=== PATIENT | female | born 1975 | race Hispanic/Latino ===

== ENCOUNTER 2018-11-16 16:59 | Inpatient (IN) | payer MEDICAID, SELFPAY ==
--- NOTE | 2018-11-17 09:10 | PDOC.FPROB ---
FMR OB H&P: HPI - History of Present Illness Chief Complaint: White class B diabetic Indentification: 43yo @32.1wks by 29wk US History of Present Illness: 43yo @32.1wks by 29wk US white class B diabetic with history of preeclampsia and hypothyroidism presents for initiation of insulin therapy 2/2 uncontrolled DM affecting . Pt reports blood sugars ranging from 140- 180 at home and is currently taking metformin 1000mg bid. She is unsure of her last Hgb A1c. She reports pos movement denies LOF, CTX, vaginal bleeding and vaginal discharge. 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: April colposcopy and leep for abnormal pap - Surgical History Sx History: Leep april 2018 - Social History Social History: Deneis tobacco etoh and drugs FMR OB H&P: Medications - Current Home Medications: Medication Instructions Recorded Confirmed Type Levothyroxine Sodium [Synthroid] 100 mcg PO DAILY 11/17/18 11/17/18 History ,Calc.40/Iron/Folate 1 1 tablet PO DAILY 11/17/18 11/17/18 History [PNV-Select Tablet] metFORMIN HCl [Metformin HCl] 1,000 mg PO BID 11/17/18 11/17/18 History Allergies/Adverse Reactions: Allergies Allergy/AdvReac Type Severity Reaction Status Date / Time No Known Drug Allergies Allergy Unverified 11/17/18 10:52 FMR OB H&P: ROS - Review of Systems General: denies: fever/chills Eyes: denies: vision changes, double vision, scotomas, floaters ENT: denies: nasal congestion, rhinorrhea Cardiovascular: denies: chest pain, palpitation Respiratory: denies: cough, shortness of breath Gastrointestinal: denies: abdominal pain, nausea, vomiting Genitourinary (Female): denies: dysuria, vaginal discharge, vaginal bleeding, contractions Neurologic: denies: weakness, headache Integumentary: denies: itching, rash FMR OB H&P: Vital Signs - Maternal Vital signs: Selected Entries 11/17/18 09:30 Temperature 98.1 F Pulse Rate 88 Blood Pressure 103/59 L [Sitting] Respiratory 18 Rate O2 Sat by Pulse 96 Oximetry Oxygen Delivery Room Air Method FMR OB H&P: Physical Exam - Physical Exam General: NAD, awake, alert and oriented HEENT: normocephalic and atraumatic, MMM, conjunctiva clear, grossly normal hearing, oropharynx clear Neck: supple, trachea midline Heart: RRR, no murmurs/rubs/gallops General: CTAB, no respiratory distress Abdomen: soft, gravid, non-tender, bowel sound present Musculoskeletal: normal gait and station, pulses present, no misalignment/ asymmetry, no atrophy Neurological: no focal deficit Skin: no rash, capillary refill <2 seconds Psychiatric: intact recent and remote memory, good judgement and insight, normal mood and affect FMR OB H&P: A/P - Problem List (1) Gestational diabetes mellitus in third trimester Current Visit: Yes Status: Acute Code(s): O24.419 - GESTATIONAL DIABETES MELLITUS IN , UNSP CONTROL Disposition: 43yo @32.1wks by 29wk DMII, White B - Ordered A1c, glucoses running 140-180 - Postal 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 Will stop Metformin. NPH 35U AM, 13U HS. Humulin 10U TID-WM - Accuchecks fasting and 2hr postprandial with fast goal <95 and 2 hr postprandial 120 Hypothyroidism - Ordered TSH - Continue home levothyroxine 100mcg Hx of Pre-E - Continue ASA daily Discussion: Date/Time: 11/17/18 0908 This H&P was discussed with Dr. Swann and [] who agree with the above documentation and plan. Addendum - Attending - Attending Attestation Date/Time: 11/17/18 1352 I personally evaluated the patient and discussed the management with Dr. Tomas and team. I agree with and repeated the History, Examination, Assessment and Plan documented above with any addition or exceptions noted below.
[2018-11-17] MEDS ORDERED: Dextrose 50% Abboject 50 ML SYRINGE SLOW IVP PRN (10:20)
[2018-11-17] MEDS ORDERED: Dextrose 5% in Water 1,000 ML IV PRN (10:20)
[2018-11-17 10:32] VITALS: BMI 32.1
[2018-11-17 11:13] LABS: #Eosinphils 0.1 thou/uL (0.0-0.7); #Lymphocytes 1.2 thou/uL (1.20-3.40); #Monocytes 0.5 thou/uL (0.11-0.59); #Neutrophils 5.5 thou/uL (1.40-6.50); %Basophils 0.6 % (0.0-1.0); %Eosinophils 0.7 % (0.0-10.0); %Lymphocytes 16.9 % (21.0-51.0); %Monocytes 6.3 % (0.0-10.0); %Neutrophils 75.6 % (42.0-75.0); Hemoglobin 11.8 g/dL (12.0-16.0); Mean Corpuscular HGB CONC 33.7 g/dL (32.0-36.0); Mean Corpuscular Hemoglobin 30.6 pg (27.0-31.0); Mean Platelet Volume 7.5 fL (7.4-10.4); Platelet Count 275 thou/uL (130-400); Red Blood Cell (RBC) Count 3.86 mill/uL (4.20-5.40); White Blood Cell (WBC) Count 7.2 thou/uL (4.8-10.8)
[2018-11-17 11:16] LABS: Hemoglobin A1c 5.6 % (4.0-6.0)
[2018-11-17 11:49] LABS: HIV (1/2) Antibody/Antigen Non-Reactive (NonReactive); HIV 1/2 INDEX 0.11 S/CO (<1.00); Thyroid Stimulating Hormone 1.7373 uIU/mL (0.35-4.94)
[2018-11-17 11:50] LABS: Syphilis Antibody Nonreactive (Nonreactive); Syphilis Antibody Index 0.07 S/CO (<1.00 Non-Reactive)
[2018-11-17] MEDS ORDERED: Insulin Regular 300 UNITS/3 ML VIAL SC SCH (17:00)
[2018-11-17] MEDS ORDERED: HumaLOG 300 UNITS/3 ML VIAL SC SCH ×2 (17:00→21:00)
[2018-11-17] MEDS: HumaLOG 300 UNITS/3 ML VIAL SC SCH (18:25)
[2018-11-17] MEDS ORDERED: NPH, Human Insulin Isophane 300 UNIT/3 ML VIAL SC SCH ×2 (21:00)
[2018-11-18] MEDS ORDERED: Levothyroxine Sodium 100 MCG TAB PO SCH (06:00)
[2018-11-18] MEDS ORDERED: Insulin Regular 300 UNITS/3 ML VIAL SC SCH (08:00)
[2018-11-18] MEDS ORDERED: HumaLOG 300 UNITS/3 ML VIAL SC SCH ×2 (08:00)
--- NOTE | 2018-11-18 08:08 | PDOC.FM ---
- Subjective Subjective: Pts blood sugar well controlled last night. Pt denies tremulousness, NVDC, CP, SOB. Pos movement, no discharge LOF, or vaginal bleeding. No complaints. - Objective MAR Reviewed: Yes Vital Signs & Weight: Vital Signs (12 hours) Temp Pulse Resp BP Pulse Ox 11/18/18 07:49 97.8 F 84 20 113/59 L 99 11/18/18 04:28 98.0 F 80 16 115/55 L 97 11/17/18 23:53 98.3 F 81 18 110/62 97 Weight Weight 87.543 kg Result Diagrams: 11/17/18 11:02 Phys Exam - Physical Examination Constitutional: NAD HEENT: PERRLA, sclera anicteric Neck: no nodes Respiratory: no wheezing, no rales, no rhonchi, clear to auscultation bilateral Cardiovascular: RRR, no significant murmur, no rub Gastrointestinal: soft, non-tender, no distention, positive bowel sounds Musculoskeletal: no edema, pulses present Neurological: non-focal, moves all 4 limbs Dx/Plan (1) Diabetes mellitus affecting Code(s): O24.919 - UNSP DIABETES MELLITUS IN , UNSPECIFIED TRIMESTER Status: Acute (2) History of pre-eclampsia Code(s): Z87.59 - PERSONAL HISTORY OF COMP OF PREG, CHLDBRTH AND THE PUERP Status: Acute - Plan Plan: 43yo @32.2wks by 29wk DMII, White B - A1c 5.6 - General Education Instructor consult, CC diet with bedtime snack high in fat/protein - Starting insulin, pt is insulin naive - accuchecks have been wnl and random blood sugar check yesterday (116) was approx 2 hours after breakfast - decrease AM dose to 15U NPH to be given with 10U humalog Hypothyroidism - TSH WNL - Continue home levothyroxine 100mcg Hx of Pre-E - Continue ASA daily Late to care: - will need testing AMA: - MFM appointment scheduled for tomorrow Dispo: stable, will continue to monitor pp sugars throughout the day and if stable or even mildly hyperglycemic will dc to home with instruction to f/u with MFM and continue to trend sugars with close OP f/u. Addendum - Attending - Attending Attestation Date/Time: 11/18/18 0502 I personally evaluated the patient and discussed the management with Dr. Swann and team. I agree with and repeated the History, Examination, Assessment and Plan documented above with any addition or exceptions noted below. Likely d/c this afternoon or evening with APT scheduled.
[2018-11-18] MEDS ORDERED: Prenatal Vitamin 1 TAB PO SCH (09:00)
[2018-11-18] MEDS ORDERED: NPH, Human Insulin Isophane 300 UNIT/3 ML VIAL SC SCH ×3 (09:00)
[2018-11-18] MEDS: HumaLOG 300 UNITS/3 ML VIAL SC SCH (09:31)
[2018-11-18 11:16] VITALS: BP 109/57; TEMP 98.3
== END 2018-11-18 16:40 | disposition home health service (06) | DRG 833 ==
LOC: 3SE 11-17 08:38
PROVIDERS: ADMIT Emergency Medicine; ATTEND Emergency Medicine
DX: O24.113 Pre-existing type 2 diabetes mellitus, in pregnancy, third trimester (principal); E11.8 Type 2 diabetes mellitus with unspecified complications; O99.283 Endocrine, nutritional and metabolic diseases complicating pregnancy, third trimester; E03.9 Hypothyroidism, unspecified; Z3A.32 32 weeks gestation of pregnancy; Z79.899 Other long term (current) drug therapy; Z79.84 Long term (current) use of oral hypoglycemic drugs; Z87.59 Personal history of other complications of pregnancy, childbirth and the puerperium
CPT/HCPCS: 36415; 36416; 59025; 83036; 84443; 85025; 86780; 87389; J1815

== ENCOUNTER 2018-11-16 17:32 | Emergency (ER) | payer MEDICAID, SELFPAY | END 2018-11-16 18:35 | disposition home or self-care (01) | LOC: ERS 17:32 | DX: O24.813 Other pre-existing diabetes mellitus in pregnancy, third trimester (principal); E11.65 Type 2 diabetes mellitus with hyperglycemia; O99.283 Endocrine, nutritional and metabolic diseases complicating pregnancy, third trimester; E03.9 Hypothyroidism, unspecified | CPT/HCPCS: 36416; 99284 ==

== ENCOUNTER 2018-12-16 15:00 | Inpatient (IN) | payer OTHER, SELFPAY ==
--- NOTE | 2018-12-16 22:23 | PDOC.FPROB ---
FMR OB H&P: HPI - History of Present Illness Chief Complaint: IOL History of Present Illness: This is a 43yo F @ 37wks by 29.6wk US (LENA 01/06/19). Patient has had a complicated by AMA, class B GDM, Hypothyroidism, Obesity, NSAID use in , late to PNC, and anemia of . Patient has no complaints or concerns upon arrival. She endorses + FM. Denies LOF, vaginal bleeding/ discharge, vision changes, LE edema, SOB, chest pain. Primary Care Physician: Fantasma FMR OB H&P: Current - Care : 7 Para: [id number] Gestational age: 38 Due date: 01/06/19 Dating Criteria: 29.6wk US Course/Complications: see HPI - OB Labs Blood type: O RH: positive Antibody Screen: negative HIV: negative RPR: negative HepBsAg: negative Rubella: non-immune Gonorrhea: negative Chlamydia: negative A1c: 6.3 GBS: negative H&H: 06/07/33.1 Platelets: 289 - Anatomy Survey Anatomy survey: no abnormalities noted posterior placenta FMR OB H&P: History - Past Medical History PMH: pregestational DM (2015), Hypothyroidism (2015) - OB History OB History: uncomplicated x4, SAB X 2 - 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 Hx of abnormal pap 2018 s/o colpo/ LEEP 2018. States NILM 08/2018. - Surgical History Sx History: SxHx: D&C x1. LEEP 2018. - Social History Social History: SOhx: single. FOB involved. Feels safe. Denies T/A/D use. No travel. - Family History Family History: DM, asthma. No congenital problems. FMR OB H&P: Medications - Current Home Medications: Medication Instructions Recorded Confirmed Type Levothyroxine Sodium [Synthroid] 100 mcg PO DAILY 11/17/18 11/17/18 History ,Calc.40/Iron/Folate 1 1 tablet PO DAILY 11/17/18 11/17/18 History [PNV-Select Tablet] Ibuprofen [Motrin] 800 mg PO Q8H #30 tab 12/20/18 Rx Levothyroxine Sodium [Synthroid] 100 mcg PO DAILY tab 12/20/18 Rx metFORMIN [Glucophage] 500 mg PO BID-WM #60 tab 12/20/18 Rx Allergies/Adverse Reactions: Allergies Allergy/AdvReac Type Severity Reaction Status Date / Time No Known Drug Allergies Allergy Verified 12/16/18 23:22 FMR OB H&P: ROS - Review of Systems General: denies: fever/chills, weight/appetite/sleep changes, night sweats, fatigue Eyes: denies: vision changes, double vision, scotomas, floaters ENT: denies: nasal congestion, rhinorrhea Cardiovascular: denies: chest pain, palpitation, edema Respiratory: denies: cough, congestion, shortness of breath Gastrointestinal: denies: abdominal pain, nausea, vomiting, diarrhea Genitourinary (Female): denies: dysuria Neurologic: denies: numbness, weakness Integumentary: denies: itching, rash FMR OB H&P: Vital Signs - Heart Tones Baseline: 140 Variability: moderate Category: category 1 [place] contractions every: none FMR OB H&P: Physical Exam - Physical Exam General: NAD, awake, alert and oriented HEENT: normocephalic and atraumatic, PERRLA, EOMI, MMM, grossly normal vision, grossly normal hearing Neck: supple, FROM, trachea midline Chest: non-tender to palpation, no lesions Heart: RRR, normal S1/S2, no murmurs/rubs/gallops, pulses present General: CTAB, no respiratory distress, good air movement, no wheezing, no retractions Abdomen: soft, gravid, non-tender Musculoskeletal: normal gait and station, FROM in all four extremities Skin: no rash, good tugor Psychiatric: intact recent and remote memory - Pelvic Exam Vulva: normal hair distribution Deviation from normal: scarring of cervix SVE: cl/th/hi Ortiz score: 1 Presentation: cephalic FMR OB H&P: A/P - Problem List (1) Rubella non-immune status, antepartum Status: Acute Code(s): O99.89 - OTH DISEASES AND CONDITIONS COMPL PREG/ CHLDBRTH; Z28.3 - UNDERIMMUNIZATION STATUS (2) Anemia affecting Status: Acute Code(s): O99.019 - ANEMIA COMPLICATING , UNSPECIFIED TRIMESTER (3) Hypothyroidism Status: Acute Code(s): E03.9 - HYPOTHYROIDISM, UNSPECIFIED (4) Advanced maternal age (AMA) in Status: Acute Code(s): [id number] - (5) Diabetes mellitus affecting Status: Acute Code(s): O24.919 - UNSP DIABETES MELLITUS IN , UNSPECIFIED TRIMESTER Disposition: IOL, term - Will start IOL - Cervical check: cl/th/hi, cervical scar noted w/ hx of leep, Will recheck in 4hrs. Ortiz score 1 - Will give one dose of cytotech - VSS Oligohydramnios - Deepest vertical pocket 1.1 - one dose of cytotech, Will place balloon once able for mechanical dilation Pregestational DM, class B - Dx 2014 - most recent A1C 6.3% - Will monitor sugars, q4hr; will do q2hr once in active labor Hypothyroidism - TSH = 4.6 (10/2018) -> 1.98 (11/30/18) - on levothyroxine 100mcg Anemia of - most recent H/H on 12/01/18: 11.4/33.1 BMI 34 - patient has received nutritional education, weight gain in 5 lbs AMA - aware Hx of LEEP x2 Hx of SAB x2, DxC x1 Rubella nonimmune Dispo: admit to L&D, IOL Case Discussed with Dr. Gordon Discussion: Date/Time: 12/16/182214 This H&P was discussed with [] and [] who agree with the above documentation and plan. Addendum - Attending - Attending Attestation Date/Time: 12/16/182314 I personally evaluated the patient and discussed the management with Dr. Leon and Dr. Mercedes I agree with the History, Examination, Assessment and Plan documented above with any addition or exceptions noted below. 43 yo female at 37.0 wks by 29.6 wk sono here for IOL 2/2 oligo in high risk . Multiple complications: AMA, BMI 40, Class B DM, hx of preE, hypothyroidism, NSAID use, late to care, oligo, hx of D&C, hx of SAB x2, hx of LEEP Scaring noted on SVE. Will start induction with miso. Ortiz unfavorable. Switch to balloon when possible due to other risk factors. Monitor closely. Cat 1 tracing. Cephalic. ABrayMD
[2018-12-16] MEDS ORDERED: NS / Oxytocin 40 units/1000ml 1,000 ML IV PRN (22:51)
[2018-12-16] MEDS ORDERED: Lidocaine 1% (PF) 30 ML VIAL SC PRN (22:51)
[2018-12-16] MEDS ORDERED: Promethazine HCl 25 MG/ML VIAL IM PRN (22:55)
[2018-12-16] MEDS ORDERED: Acetaminophen 500 MG TAB PO PRN (22:55)
[2018-12-16] MEDS ORDERED: Ondansetron PF 4 MG/2 ML Vial IVP PRN (22:55)
[2018-12-16] MEDS ORDERED: NS w/ Oxytocin 10 units 500 ML IV SCH (23:00)
[2018-12-16 23:50] VITALS: BMI 33.3
[2018-12-17] MEDS ORDERED: diphenhydrAMINE 25 MG CAP PO PRN (00:29)
[2018-12-17] MEDS ORDERED: Misoprostol 100 MCG TAB VAG SCH (00:30)
[2018-12-17] MEDS: Lactated Ringer's 1,000 ML IV SCH ×2 (00:35→20:38)
[2018-12-17 01:23] LABS: Mean Corpuscular HGB CONC 33.2 g/dL (32.0-36.0); Mean Corpuscular Volume 90.4 fL (78.0-98.0); Mean Platelet Volume 7.7 fL (7.4-10.4); Platelet Count 276 thou/uL (130-400); RBC Distribution Width 12.1 % (11.5-14.5); Red Blood Cell (RBC) Count 3.68 mill/uL (4.20-5.40); White Blood Cell (WBC) Count 9.6 thou/uL (4.8-10.8)
[2018-12-17 01:31] LABS: Glucose 95 mg/dL (70-105)
[2018-12-17 01:46] LABS: HBSAg Index 0.42 S/CO (0-0.99); Hep B Surf Ag Non-Reactive S/CO (NonReactive)
--- NOTE | 2018-12-17 04:41 | PDOC.LDPN ---
Labor & Delivery Progress Note - Subjective Subjective: comfortable - Objective Vital signs reviewed and normal: yes General: NAD, resting, breathing through contractions Uterine fundus: tender to palpation Dilation: cl Effacement: 0% Station: -3 FHT: category 1, variability present [place] contractions every: every 2 min Resuscitative measures: maternal IV fluids - Assessment (1) Rubella non-immune status, antepartum Code(s): O99.89 - OTH DISEASES AND CONDITIONS COMPL PREG/CHLDBRTH; Z28.3 - UNDERIMMUNIZATION STATUS Status: Acute (2) Anemia affecting Code(s): O99.019 - ANEMIA COMPLICATING , UNSPECIFIED TRIMESTER Status : Acute (3) Hypothyroidism Code(s): E03.9 - HYPOTHYROIDISM, UNSPECIFIED Status: Acute (4) Advanced maternal age (AMA) in Code(s): [id number] - Status: Acute (5) Diabetes mellitus affecting Code(s): O24.919 - UNSP DIABETES MELLITUS IN , UNSPECIFIED TRIMESTER Status: Acute Plan: continue plan of care -: IOL, term - Continue induction of labor - Cervical check: -@ 0021 cl/th/hi, cervical scar noted w/ hx of leep, cytotech x1 -@0430 cl/th/hi, CTX every 2 min - VSS - FHT: 150s, mod variability, no decels Oligohydramnios - Deepest vertical pocket 1.1 - Will place balloon when patient more dilated Pregestational DM, class B - Dx 2014 - most recent A1C 6.3% - Will monitor sugars, q4hr; will do q2hr once in active labor - Sugars have been well controlled, most recent 74 Hypothyroidism - TSH = 4.6 (10/2018) -> 1.98 (11/30/18) - on levothyroxine 100mcg Anemia of - most recent H/H on 12/01/18: 11.4/33.1 BMI 34 - patient has received nutritional education, weight gain in 5 lbs AMA - aware Hx of LEEP x2 Hx of SAB x2, DxC x1 Rubella nonimmune Addendum - Attending - Attending Attestation Date/Time: 12/17/18 0518 I personally evaluated the patient and discussed the management with Dr. Leon and Dr. Mercedes I agree with the History, Examination, Assessment and Plan documented above with any addition or exceptions noted below. 43 yo female at 37.1 wks by 29.6 wk sono here for IOL 2/2 oligo in high risk . Multiple complications: AMA, BMI 40, Class B DM, hx of preE, hypothyroidism, NSAID use, late to care, oligo, hx of D&C, hx of SAB x2, hx of LEEP Cat 1 tracing. Ctx q 2 to 3 min. Still closed on exam. Switch to pitocin. Logan
[2018-12-17 04:44] LABS: Syphilis Antibody Nonreactive (Nonreactive); Syphilis Antibody Index 0.07 S/CO (<1.00 Non-Reactive)
--- NOTE | 2018-12-17 06:36 | PDOC.LDPN ---
Labor & Delivery Progress Note - Subjective Subjective: comfortable - Objective Vital signs reviewed and normal: yes General: NAD, resting, breathing through contractions Uterine fundus: non tender Dilation: closed Effacement: 0% Station: -3 FHT: category 1, variability present [place] contractions every: ever 2-4min Resuscitative measures: maternal IV fluids - Assessment (1) Rubella non-immune status, antepartum Code(s): O99.89 - OTH DISEASES AND CONDITIONS COMPL PREG/CHLDBRTH; Z28.3 - UNDERIMMUNIZATION STATUS Status: Acute (2) Anemia affecting Code(s): O99.019 - ANEMIA COMPLICATING , UNSPECIFIED TRIMESTER Status : Acute (3) Hypothyroidism Code(s): E03.9 - HYPOTHYROIDISM, UNSPECIFIED Status: Acute (4) Advanced maternal age (AMA) in Code(s): [id number] - Status: Acute (5) Diabetes mellitus affecting Code(s): O24.919 - UNSP DIABETES MELLITUS IN , UNSPECIFIED TRIMESTER Status: Acute Plan: continue plan of care, pitocin for augmentation -: IOL, term - Continue induction of labor - Cervical check: -@ 0021 cl/th/hi, cervical scar noted w/ hx of leep, cytotech x1 -@0430 cl/th/hi, CTX every 2 min -@0630 cl/th/hi, CTX every 2-4min, will start low dose pit -Will recheck in 2-4hrs - VSS - FHT: 150s, mod variability, no decels Case discussed with Dr. Gordon and Daren. Addendum - Attending - Attending Attestation Date/Time: 12/17/18 0620 I personally evaluated the patient and discussed the management with Dr. Leon and Dr. Mercedes I agree with the History, Examination, Assessment and Plan documented above with any addition or exceptions noted below. 43 yo female at 37.1 wks by 29.6 wk sono here for IOL 2/2 oligo in high risk . Multiple complications: AMA, BMI 40, Class B DM, hx of preE, hypothyroidism, NSAID use, late to care, oligo, hx of D&C, hx of SAB x2, hx of LEEP Cat 1 tracing. Ctx q 2 to 4 min. Still closed on exam. Continue pitocin. Add balloon with able. Consider switching back to miso if needed but use caution. Logan
[2018-12-17] MEDS ORDERED: Butorphanol Tartrate 1 MG/ML VIAL SLOW IVP PRN (07:45)
--- NOTE | 2018-12-17 07:48 | PDOC.EVN ---
Event Note - Event Note Event Note: 43 yo @ 37wks by 29.6wk US admitted last night for IOL 2/2 oligohydramnios. C/o of some pain this morning. +FM. Had one round of cytotec overnight. Has hx of LEEP x 2. Most recent check was fingertip, thick, and high. D/t complicated hx of a leep x2, planning to start pitocin. Pt desires an epidural once she is farther along and would like something now for pain. Her is complicated by AMA, class B GDM, Hypothyroidism, Obesity, NSAID use in , late to PNC, and anemia of . PE: NAD gravid no increased work of breathing fingertip thick high A/P: sIUP, induced for oligohydramnios- will start pit and continue labor checks q2h stadol 1mg q2h prn pain for pain now since pt complaining of pain Class B, GDM -accuchecks -insulin if indicated Anemia of -aware AMA-aware Hypothyroidism-levo continued Obesity-aware Sheeba Jordan, PGY-2,
[2018-12-17] MEDS ORDERED: Butorphanol Tartrate 1 MG/ML VIAL ONE (08:04)
--- NOTE | 2018-12-17 10:43 | PDOC.LDPN ---
Labor & Delivery Progress Note - Subjective Subjective: comfortable - Objective Vital signs reviewed and normal: yes General: NAD, resting Dilation: closed Effacement: 0% Station: -3 FHT: category 1, variability present - Assessment (1) Advanced maternal age (AMA) in Code(s): [id number] - Status: Acute (2) Anemia affecting Code(s): O99.019 - ANEMIA COMPLICATING , UNSPECIFIED TRIMESTER Status : Acute (3) Diabetes mellitus affecting Code(s): O24.919 - UNSP DIABETES MELLITUS IN , UNSPECIFIED TRIMESTER Status: Acute (4) History of pre-eclampsia Code(s): Z87.59 - PERSONAL HISTORY OF COMP OF PREG, CHLDBRTH AND THE PUERP Status: Acute -: # term , induction 2/2 oligohydramnios -@ 0021 cl/th/hi, cervical scar noted w/ hx of leep, cytotech x1 -@0430 cl/th/hi, CTX every 2 min -@0630 cl/th/hi, CTX every 2-4min, will start low dose pit -@1030 cl/th/hi, ctx irregular, will increased dose of pitocin, monitor closely for how baby tolerates -Will recheck in 2-4hrs - Category 1 strip Hx of LEEP x2 - monitor cervical changes closely Oligohydramnios - Deepest vertical pocket 1.1 Pregestational DM, class B - Dx 2014 - most recent A1C 6.3% Hypothyroidism - TSH = 4.6 (10/2018) -> 1.98 (11/30/18) - on levothyroxine 100mcg Anemia of - most recent H/H on 12/01/18: 11.4/33.1 AMA - aware Hx of SAB x2, DxC x1 Rubella nonimmune - MMR PP Addendum - Attending - Attending Attestation Date/Time: 12/20/18 6404 I personally evaluated the patient and discussed the management with Dr. Garcia on 12/17/18. I agree with the History, Examination, Assessment and Plan documented above with any addition or exceptions noted below. Will increase Pit throughout the day today. If dilates enough for a balloon, will place. Otherwise will plan to suspend induction and reapply cytotec or cervidil as tolerated overnight and try again in a.m. Discussed with pt and she agrees.
--- NOTE | 2018-12-17 13:21 | PDOC.LDPN ---
Labor & Delivery Progress Note - Subjective Subjective: comfortable - Objective Vital signs reviewed and normal: yes General: NAD Uterine fundus: non tender Dilation: closed Station: -3 FHT: category 1 [place] contractions every: 2-3 min - Assessment (1) Advanced maternal age (AMA) in Code(s): [id number] - Current Visit: No Status: Acute (2) Anemia affecting Code(s): O99.019 - ANEMIA COMPLICATING , UNSPECIFIED TRIMESTER Current Visit: No Status: Acute (3) Diabetes mellitus affecting Code(s): O24.919 - UNSP DIABETES MELLITUS IN , UNSPECIFIED TRIMESTER Current Visit: No Status: Acute (4) History of pre-eclampsia Code(s): Z87.59 - PERSONAL HISTORY OF COMP OF PREG, CHLDBRTH AND THE PUERP Current Visit: No Status: Acute -: # term , induction 2/2 oligohydramnios -@ 0021 cl/th/hi, cervical scar noted w/ hx of leep, cytotech x1 -@0430 cl/th/hi, CTX every 2 min -@0630 cl/th/hi, CTX every 2-4min, will start low dose pit (pit started at 2 from [id number]) -@1030 cl/th/hi, ctx irregular, will increased dose of pitocin, monitor closely for how baby tolerates -@1300 cl/th/hi, ctx q2-3 min, baby tolerating pitocin well, mom still not making change, will continue pitocin for now -Will recheck in 2-4hrs - Category 1 strip Hx of LEEP x2 - monitor cervical changes closely Oligohydramnios - Deepest vertical pocket 1.1 Pregestational DM, class B - Dx 2014 - most recent A1C 6.3% Hypothyroidism - TSH = 4.6 (10/2018) -> 1.98 (11/30/18) - on levothyroxine 100mcg Anemia of - most recent H/H on 12/01/18: 11.4/33.1 AMA - aware Hx of SAB x2, DxC x1 Rubella nonimmune - MMR PP
--- NOTE | 2018-12-17 16:41 | PDOC.LDPN ---
Labor & Delivery Progress Note - Subjective Subjective: comfortable - Objective Vital signs reviewed and normal: yes General: NAD Dilation: closed Effacement: 0% Station: -3 FHT: category 1 [place] contractions every: 2-3 min - Assessment (1) Advanced maternal age (AMA) in Code(s): [id number] - Current Visit: No Status: Acute (2) Anemia affecting Code(s): O99.019 - ANEMIA COMPLICATING , UNSPECIFIED TRIMESTER Current Visit: No Status: Acute (3) Diabetes mellitus affecting Code(s): O24.919 - UNSP DIABETES MELLITUS IN , UNSPECIFIED TRIMESTER Current Visit: No Status: Acute (4) History of pre-eclampsia Code(s): Z87.59 - PERSONAL HISTORY OF COMP OF PREG, CHLDBRTH AND THE PUERP Current Visit: No Status: Acute -: # term , induction 2/2 oligohydramnios -@ 0021 cl/th/hi, cervical scar noted w/ hx of leep, cytotech x1 -@0430 cl/th/hi, CTX every 2 min -@0630 cl/th/hi, CTX every 2-4min, will start low dose pit (pit started at 2 from [id number]) -@1030 cl/th/hi, ctx irregular, increased dose of pitocin -@1300 cl/th/hi, ctx q2-3 min -@1630 cl/th/-2, ctx q2-3 min, will stop pitocin for 2 hour and then try cytotec once again for cervical ripening -Will recheck in 2-4hrs - Category 1 strip Hx of LEEP x2 - monitor cervical changes closely Oligohydramnios - Deepest vertical pocket 1.1 Pregestational DM, class B - Dx 2014 - most recent A1C 6.3% Hypothyroidism - TSH = 4.6 (10/2018) -> 1.98 (11/30/18) - on levothyroxine 100mcg Anemia of - most recent H/H on 12/01/18: 11.4/33.1 AMA Hx of SAB x2, DxC x1 Rubella nonimmune - MMR PP
[2018-12-17] MEDS: Misoprostol 100 MCG TAB VAG SCH ×2 (20:38→23:24)
--- NOTE | 2018-12-17 21:40 | PDOC.LDPN ---
Labor & Delivery Progress Note - Subjective Subjective: comfortable - Objective Vital signs reviewed and normal: yes General: NAD, resting Uterine fundus: non tender SVE: 20:20 by Yung Dilation: 0 Effacement: 0% Station: -3 FHT: category 1, variability present [place] contractions every: None in last 30 minutes Procedures: Cytotec placed -: Patient closed with stenotic internal cervical os. Effacement difficult to adequately assess given degree of irregularity. Cytotec placed as there were not contractions for lasat 30 minutes. Re-evaluate in 4 hours.
--- NOTE | 2018-12-17 23:35 | PDOC.LDPN ---
Labor & Delivery Progress Note - Subjective Subjective: comfortable - Objective Vital signs reviewed and normal: yes General: NAD, resting Uterine fundus: tender to palpation Dilation: 0 Effacement: 0% Station: -2 FHT: category 1 [place] contractions every: 6 - Assessment (1) Advanced maternal age (AMA) in Code(s): [id number] - Status: Acute (2) Anemia affecting Code(s): O99.019 - ANEMIA COMPLICATING , UNSPECIFIED TRIMESTER Status : Acute (3) Diabetes mellitus affecting Code(s): O24.919 - UNSP DIABETES MELLITUS IN , UNSPECIFIED TRIMESTER Status: Acute (4) Gestational diabetes mellitus in third trimester Code(s): O24.419 - GESTATIONAL DIABETES MELLITUS IN , UNSP CONTROL Status: Acute (5) History of pre-eclampsia Code(s): Z87.59 - PERSONAL HISTORY OF COMP OF PREG, CHLDBRTH AND THE PUERP Status: Acute (6) Hypothyroidism Code(s): E03.9 - HYPOTHYROIDISM, UNSPECIFIED Status: Acute (7) Rubella non-immune status, antepartum Code(s): O99.89 - OTH DISEASES AND CONDITIONS COMPL PREG/CHLDBRTH; Z28.3 - UNDERIMMUNIZATION STATUS Status: Acute -: cervix unchanged. suboptimal contraction pattern. cytotec placed. reassess in 3- 4 hrs. Addendum - Attending - Attending Attestation Date/Time: 12/17/18 4910 I personally evaluated the patient and discussed the management with Dr. Leon and Dr. Mercedes I agree with the History, Examination, Assessment and Plan documented above with any addition or exceptions noted below. 43 yo female at 37.1 wks by 29.6 wk sono here for IOL 2/2 oligo in high risk . Multiple complications: AMA, BMI 33, Class B DM, hx of preE, hypothyroidism, NSAID use, late to care, oligo, hx of D&C, hx of SAB x2, hx of LEEP, rubella nonimmune Cat 1 tracing. Still closed on exam. Unable to place balloon. Pitocin has been stopped from earlier today. Patient has eaten. Will restart with miso. Logan
--- NOTE | 2018-12-18 03:34 | PDOC.LDPN ---
Labor & Delivery Progress Note - Subjective Subjective: comfortable, no concerns - Objective Vital signs reviewed and normal: yes General: NAD, resting Uterine fundus: non tender Dilation: 0 Effacement: 0% Station: -3 FHT: category 2 (baseline 130-140, moderate juany, 3 late decelerations in past hour), late decelerations, variability present [place] contractions every: 5-10 Resuscitative measures: maternal oxygen, maternal IV fluids, maternal position change - Assessment (1) Advanced maternal age (AMA) in Code(s): [id number] - Status: Acute (2) Anemia affecting Code(s): O99.019 - ANEMIA COMPLICATING , UNSPECIFIED TRIMESTER Status : Acute (3) Diabetes mellitus affecting Code(s): O24.919 - UNSP DIABETES MELLITUS IN , UNSPECIFIED TRIMESTER Status: Acute (4) Gestational diabetes mellitus in third trimester Code(s): O24.419 - GESTATIONAL DIABETES MELLITUS IN , UNSP CONTROL Status: Acute (5) History of pre-eclampsia Code(s): Z87.59 - PERSONAL HISTORY OF COMP OF PREG, CHLDBRTH AND THE PUERP Status: Acute (6) Hypothyroidism Code(s): E03.9 - HYPOTHYROIDISM, UNSPECIFIED Status: Acute (7) Rubella non-immune status, antepartum Code(s): O99.89 - OTH DISEASES AND CONDITIONS COMPL PREG/CHLDBRTH; Z28.3 - UNDERIMMUNIZATION STATUS Status: Acute Plan: resuscitative measures -: discussed with patient and regarding options going forward. At this time she has not made cervical change after 3 doses of cytotec and IV pitocin yesterday. She had 3 late decelerations into the 110s in the past hour and appears to be responding to resuscitative measures. I informed the patient and her that we cannot continue to use cytotec at this point given early signs of distress. Her options at this time include continuing resuscitative measures and monitoring for the next hour. If the FHT remains category 1, we could resume augmentation with IV pitocin which could lead to further distress. Her other option would be to proceed with now. She has elected to proceed with resuscitation and attempt further augmentation with IV pitocin in 1 hour assuming the FHT remains category 1. The patient stated she would be willing to have a if we felt continued labor augmentation would place her and the baby at undue risk. Taffy Puller utilized. ID# [id number] Gordon at 0335. Addendum - Attending - Attending Attestation Date/Time: 12/18/18 7515 I personally evaluated the patient and discussed the management with Dr. Leon and Dr. Mercedes I agree with the History, Examination, Assessment and Plan documented above with any addition or exceptions noted below. 43 yo female at 37.2 wks by 29.6 wk sono here for IOL 2/2 oligo in high risk . Multiple complications: AMA, BMI 33, Class B DM, hx of preE, hypothyroidism, NSAID use, late to care, oligo, hx of D&C, hx of SAB x2, hx of LEEP, rubella nonimmune miso x3 pitocin protocol x1 over 24 hours of IOL. Unachanged exam. Now with intermittent cat 2. Resolves with intervention. Will switch back to pitocin due to risk. Options discussed. Continue to closely monitor. Logan
[2018-12-18] MEDS ORDERED: NS w/ Oxytocin 10 units 500 ML ONE (04:45)
[2018-12-18] MEDS ORDERED: NS w/ Oxytocin 10 units 500 ML IV SCH (05:00)
--- NOTE | 2018-12-18 07:52 | PDOC.LDPN ---
Labor & Delivery Progress Note - Subjective Subjective: painful contractions - Objective Vital signs reviewed and normal: yes General: NAD, resting Dilation: closed Effacement: 0% Station: -2 FHT: category 1 [place] contractions every: 2-3 min - Assessment (1) Advanced maternal age (AMA) in Code(s): [id number] - Status: Acute (2) Anemia affecting Code(s): O99.019 - ANEMIA COMPLICATING , UNSPECIFIED TRIMESTER Status : Acute (3) Diabetes mellitus affecting Code(s): O24.919 - UNSP DIABETES MELLITUS IN , UNSPECIFIED TRIMESTER Status: Acute (4) History of pre-eclampsia Code(s): Z87.59 - PERSONAL HISTORY OF COMP OF PREG, CHLDBRTH AND THE PUERP Status: Acute -: # term , induction 2/2 oligohydramnios - 0730 Cl/Th/-2, no decels at this time - on 4 of pit - still no progress status post 3 of cytotec and pit augmentation over the last 36 horus - Will recheck in 2-4hrs - Category 1 strip Hx of LEEP x2 Oligohydramnios - Deepest vertical pocket 1.1 Pregestational DM, class B - Dx 2014 - most recent A1C 6.3% Hypothyroidism - TSH = 4.6 (10/2018) -> 1.98 (11/30/18) - on levothyroxine 100mcg Anemia of - most recent H/H on 12/01/18: 11.4/33.1 AMA Hx of SAB x2, DxC x1 Rubella nonimmune - MMR PP Addendum - Attending - Attending Attestation Date/Time: 12/18/18 1175 I personally evaluated the patient and discussed the management with Dr. Garcia. I agree with the History, Examination, Assessment and Plan documented above with any addition or exceptions noted below. Pt. examined by myself as well and I agree with Dr. Garcia's findings. Situation reviewed with patient in Kiswahili: no progress in achieving cervical change despite 2 nights of misoprostol preparation and full dose Oxytocin trial yesterday. Options at this point are a) speculum examination of cervix to attempt insertion of balloon or osmotic dilator, or b) proceed directly to surgical delivery via section. Pro's and Con's of both reviewed, including risks and benefits. Pt. requests to proceed with section.
[2018-12-18] MEDS ORDERED: CEFAZOLIN 2 GM in Premix Bag 1 BAG IVPB SCH (08:30)
[2018-12-18] MEDS ORDERED: Bicitra 30 ML UDCUP PO SCH (08:30)
[2018-12-18] MEDS ORDERED: MORPHINE 5 MG/10 ML PF VIAL ONE (08:54)
[2018-12-18] MEDS ORDERED: Oxytocin 10 UNITS/ML VIAL ONE (08:54)
[2018-12-18] MEDS ORDERED: Ondansetron PF 4 MG/2 ML Vial ONE ×2 (08:54→10:44)
[2018-12-18] MEDS ORDERED: diphenhydrAMINE 50 MG/ML VIAL IVP PRN (08:57)
[2018-12-18] MEDS ORDERED: HYDROmorphone 2 MG/ML VIAL SLOW IVP PRN (08:57)
[2018-12-18] MEDS ORDERED: Eucerin (Mineral Oil/Petrolatum,White) 30 gm Jar TOP PRN (08:57)
[2018-12-18] MEDS ORDERED: Promethazine HCl 25 MG/ML VIAL IM PRN (08:57)
[2018-12-18] MEDS ORDERED: Ondansetron HCl/PF 4 MG/2 ML Vial IVP PRN (08:57)
[2018-12-18] MEDS ORDERED: L&D-Morphine 4 MG/ML VIAL SLOW IVP PRN (08:57)
[2018-12-18] MEDS ORDERED: Meperidine HCl/PF 25 MG/ML VIAL SLOW IVP PRN (08:57)
[2018-12-18] MEDS ORDERED: Naloxone HCl 0.4 mg/ml Vial IV PRN (08:57)
[2018-12-18] MEDS ORDERED: Promethazine HCl 25 MG SUPP PR PRN (08:57)
[2018-12-18] MEDS ORDERED: Naloxone HCl 0.4 mg/ml Vial IVP PRN ×2 (08:57)
[2018-12-18] MEDS ORDERED: Communication Order-Pharmacy FS SCH (09:00)
[2018-12-18] MEDS ORDERED: Azithromycin 500 MG in Sodium Chloride 0.9% 250 ML 250 ML IVPB SCH (09:00)
[2018-12-18] MEDS ORDERED: Ketorolac Tromethamine 30 MG/ML VIAL IVP SCH (09:00)
[2018-12-18] MEDS ORDERED: Azithromycin 500 MG VIAL ONE (09:33)
[2018-12-18] MEDS: Misoprostol 100 MCG TAB VAG SCH ×3 (11:20→15:18)
[2018-12-18] MEDS: Lactated Ringer's 1,000 ML IV SCH ×4 (11:21→21:09)
[2018-12-18] MEDS: Ondansetron PF 4 MG/2 ML Vial IVP PRN ×2 (14:45→22:19)
[2018-12-18] MEDS: Ibuprofen 800 MG TAB PO SCH ×2 (15:04→21:10)
[2018-12-18] MEDS ORDERED: Dextrose 5% in Water 1,000 ML IV PRN (16:39)
[2018-12-18] MEDS ORDERED: HumaLOG 300 UNITS/3 ML VIAL SC PRN (16:39)
[2018-12-18] MEDS ORDERED: Dextrose 50% Abboject 50 ML SYRINGE SLOW IVP PRN (16:39)
--- NOTE | 2018-12-18 17:10 | PDOC.EVN ---
Event Note - Event Note Event Note: Initial Post-op note S: Pt reports some somnolence. Also reports nausea earlier that has resolved with medications. Expressing desire to see her baby in the NICU. Mild pain near incision. Lochia wnl per nursing. O: Vitals: T: 97.6 P: 64 RR: 18 O2: 97% on RA BP: 114/74 Exam: General: somnolent, appropriately responsive to questions; no distress noted. Heart: regular rate and rhythm, no murmurs, rubs, or gallops. Lungs: clear to auscultation bilaterally. Abdomen: soft, non-tender; fundus firm and 2 cm below. Assessment/plan. 43 year old -->5 who 4 hrs s/p primary after failed medical induction for oligohydramnios s/p . - vitals stable. - pain appropriately controlled - continue TAMIKO ibuprofen. - Tylenol available PRN. - advance diet as tolerated. - AM H/H pending. Class B GDM - continue q4 accuchecks until pt is able to tolerate a full diet; then AC/HS accuchecks after that. Hypothyroidism. - will resume Levothyroxine.
--- NOTE | 2018-12-18 18:09 | PDOC.OPDEL ---
OB Operative/Delivery Note Delivery Dr/Surgeon: Robert Assist: Pope Jordan Pre-Delivery Diagnosis: other (failure to progress) Procedure/Post Delivery Dx: primary low transverse CS Weeks gestation: 37 Anesthesia: spinal - Findings A Sex: male - 1 min: 9 - 5 min: 9 - Additional Findings/Plan Placenta delivered: spontaneous findings: low transverse hysterotomy without extension Estimated blood loss: 905 Compilations/Other Findings: Date of Procedure: 12/18/18 Resident Surgeon: Dr. Jones [employer] Supervisor Surgeon: Dr. Jordan Attending Surgeon: Dr. Dexter Procedure: Repeat low transverse caesarean section Preoperative Diagnosis: 1)Term intrauterine 2) Oligohydramnios 3.)Class B, diabetes 4.)Hyypothyroidism 3)Failed induction of labor Postoperative Diagnosis: )Term intrauterine , delivered via primary LTCS 2) Oligohydramnios 3.)Class B, diabetes 4.)Hyypothyroidism 3)Failed induction of labor Anesthesia: spinal Indications: The patient is a 43 year old now [id number] female at 37.0 weeks gestation who presented initially for a medically indicated IOL 2/2 oligohydramnios and inadequately controlled type 2 diabetes (class B), who had a failed induction 2/2 failure to dilate and after risks/benefits addressed with pt, decided to proceed with a primary LTCS. Procedure in Detail: After risks, benefits, and alternatives were explained to the patient, she gave informed consent. Pre-operative antibiotics included Cefazolin 2 gram IV and Azithromicin 500mg IV x 1. The patient was taken to the operating room and spinal anesthesia was initiated. She was placed in the supine position with a left tilt and prepped and draped in usual sterile fashion. A Pfannenstiel incision was made with a scalpel and carried down to the level of the fascia which was sharply nicked. The fascial cut was extended bluntly and then bilaterally with Lui sissors. The inferior and superior edges of the cut fascial edges were elevated with Nathanael clamps and the underlying rectus muscles were sharply and bluntly dissected free. The recti were divided digitally and retracted manually. The peritoneum was entered bluntly and retracted manually. The Sedrick-O retractor was placed. Bladder flap was created with Metzenbaum scissors. A low transverse score was made with the scalpel and the uterus was entered in the midline with the scalpel. Clear fluid was seen. The hysterotomy was extended manually. The infant was noted to be OP and was delivered by fundal pressure. Mouth and nares were bulb suctioned. Cord clamped and cut and grossly normal male infant was handed to waiting nurse. Cord blood was obtained. Placenta was manually extracted, found to be intact with 3 vessel cord and discarded. The uterus was suctioned free of clots, and the endometrium was curretted with a dry lap. The uterus was closed with a running locking #1 Monocryl. The sedrick-o retractor was then removed and the uterus exteriorized for better visualization. The bladder blade was placed. Following this a running non- locking #1 Monocryl imbricating suture was placed. Following this hemostasis was noted. The posterior aspect of the uterus was examined and found to be hemostatic. The uterus was internalized and the hysterotomy was again noted to be hemostatic. The peritoneium was closed with a running nonlocking 0-Vicryl suture. The rectus muscles and surrounding anatomy found to be hemostatic. Fascia was closed with a running non-locking 0-Vicryl suture. The subcutaneous tissue was irrigated and there were few bleeders, found to be hemostatic with cautery. The subcutaneous tissue was closed with three simple interrupted stitches using 3-0 Plain. The skin was approximated with rosario and a pressure dressing was placed. All counts were correct. The patient tolerated the procedure well and was taken to the recovery room in stable condition. qBL: 905ml Complications: None Findings: Grossly normal male with Apgars of 9 & 9. Grossly normal placenta with 3 vessel cord discarded. Drains: Sarmiento to gravity draining clear urine Post delivery plan: recovery in LICU Addendum - Attending - Attending Attestation Date/Time: 12/19/18 5735 I, Chris Dexter MD, personally evaluated the patient and discussed indications for the procedure described by Dr. Julian Cole. I directly supervised and participated in the Section and I agree with the description of procedure as documented above without any addition or exceptions.
[2018-12-18] MEDS ORDERED: Butorphanol Tartrate 1 MG/ML VIAL SLOW IVP PRN (21:00)
[2018-12-18] MEDS: Ketorolac Tromethamine 30 MG/ML VIAL IVP PRN (21:09)
[2018-12-19 06:03] LABS: Hemoglobin 9.5 g/dL (12.0-16.0); Mean Corpuscular Hemoglobin 31.1 pg (27.0-31.0); Mean Corpuscular Volume 91.5 fL (78.0-98.0); Mean Platelet Volume 7.7 fL (7.4-10.4); Platelet Count 233 thou/uL (130-400); RBC Distribution Width 12.3 % (11.5-14.5); Red Blood Cell (RBC) Count 3.04 mill/uL (4.20-5.40)
[2018-12-19] MEDS: Ketorolac Tromethamine 30 MG/ML VIAL IVP PRN (06:23)
[2018-12-19] MEDS: Ibuprofen 800 MG TAB PO SCH ×3 (06:25→21:11)
[2018-12-19] MEDS: Lactated Ringer's 1,000 ML IV SCH (06:25)
--- NOTE | 2018-12-19 07:58 | PDOC.OBPPN ---
FMR OB PN: Subj - Interval History Day: 1 Chief Complaint: induction 2/2 oligohydramnios Indentification: -->5025 s/p failed IOL and now s/p rLTCS yesterday 12/18 @ ~1000. Interval History: Ambulating, tolerating normal diet, passing flatus, pain controlled FMR OB PN: Obj - Maternal Vital signs: Selected Entries 12/18/18 12/19/18 20:00 06:20 Temperature 97.9 F Pulse Rate 58 L Blood Pressure 102/65 [Semi-Fowlers] Respiratory 18 Rate O2 Sat by Pulse 98 Oximetry Oxygen Delivery Room Air Method - Urine output I&O: 12/18/18 12/19/18 12/20/18 06:59 06:59 06:59 Intake Total 417 Output Total 820 Balance -403 FMR OB PN: Exam - Physical Exam General: NAD, awake, alert and oriented HEENT: normocephalic and atraumatic, PERRLA Heart: RRR, normal S1/S2, no murmurs/rubs/gallops General: CTAB, no respiratory distress, good air movement, no rales/rhonchi, no wheezing Abdomen: soft, fundus(cm) (firm at umbilicus) Skin: no rash, capillary refill <2 seconds : incision healing well, no erythema, no edema FMR OB PN: Data - Labs Lab results: Laboratory Results - last 24 hr 12/18/18 12/18/18 12/18/18 14:07 16:22 21:09 WBC RBC Hgb Hct MCV MCH MCHC RDW Plt Count MPV POC Glucose 93 98 97 12/19/18 12/19/18 12/19/18 01:22 05:41 06:31 WBC 9.0 RBC 3.04 L Hgb 9.5 L Hct 27.9 L MCV 91.5 MCH 31.1 H MCHC 34.0 RDW 12.3 Plt Count 233 MPV 7.7 POC Glucose 105 74 FMR OB PN: A/P - Problem List (1) Term delivered Current Visit: Yes Status: Acute Code(s): O80 - ENCOUNTER FOR FULL-TERM UNCOMPLICATED DELIVERY (2) S/P primary low transverse Current Visit: Yes Status: Acute Code(s): Z98.891 - HISTORY OF UTERINE SCAR FROM PREVIOUS SURGERY (3) Diabetes type 2, controlled Current Visit: Yes Status: Acute Code(s): E11.9 - TYPE 2 DIABETES MELLITUS WITHOUT COMPLICATIONS (4) Advanced maternal age (AMA) in Current Visit: No Status: Acute Code(s): [id number] - (5) Anemia affecting Current Visit: No Status: Acute Code(s): O99.019 - ANEMIA COMPLICATING , UNSPECIFIED TRIMESTER (6) Diabetes mellitus affecting Current Visit: No Status: Acute Code(s): O24.919 - UNSP DIABETES MELLITUS IN , UNSPECIFIED TRIMESTER (7) History of pre-eclampsia Current Visit: No Status: Acute Code(s): Z87.59 - PERSONAL HISTORY OF COMP OF PREG, CHLDBRTH AND THE PUERP (8) Hypothyroidism Current Visit: No Status: Acute Code(s): E03.9 - HYPOTHYROIDISM, UNSPECIFIED (9) Rubella non-immune status, antepartum Current Visit: No Status: Acute Code(s): O99.89 - OTH DISEASES AND CONDITIONS COMPL PREG/CHLDBRTH; Z28.3 - UNDERIMMUNIZATION STATUS Discussion: Date/Time: 12/19/18 0757 43 yo @ 37wks by 29.6wk US admitted for IOL 2/2 oligohydramnios. S/p failed IOL 2/2 no cervical change, and s/p primary LTCS yesterday (12/18) at ~ 1000, post op day #1 #sIUP, delivered -s/p failed IOL, trial period of ~36 hours without any change, cat 1 strip throughout -now s/p primary LTCS, pt tolerated procedure well -adv diet as tolerated today, encourage ambulation, pain control with norco prn , ibuprofen scheduled Hx of LEEP x2 -suspect that this was one of the main contributing factors to her failed induction Pregestational DM, class B - Dx 2014 - most recent A1C 6.3% - achs accuchecks - pt has taken metformin while not being , has only required insulin during - if sugars increase/are uncontrolled will add metformin 1000mg BID, if needed will add insulin after that, but they have been controlled here Hypothyroidism - TSH = 4.6 (10/2018) -> 1.98 (11/30/18) - continue levothyroxine 100mcg Anemia of - most recent H/H on 12/01/18: 11.4/33.1 -today: H/H 9.5/27.9 -appropriate drop today AMA- -aware Rubella nonimmune - MMR PP Hx of PreE -vitals q4h Elevated BP without diagnosis of hypertension- -monitor vitals q4h, if elevated >140/90 would do a preE workup with urine prot/ cr, cbc, cmp DVT: scd's, encourage ambulation Dispo: possible dc tomorrow, rosario to be removed on day of discharge Sheeba Jordan MD, PGY-2 Addendum - Attending - Attending Attestation Date/Time: 12/19/18 4456 I personally evaluated the patient and discussed the management with Dr. Julian Cole. I agree with the History, Examination, Assessment and Plan documented above with any addition or exceptions noted below. Pain controlled. Afeb. Incision C/D/I. Continue current care.
[2018-12-19] MEDS: Prenatal Vitamin 1 TAB PO SCH (08:36)
[2018-12-19] MEDS: Levothyroxine Sodium 100 MCG TAB PO SCH (08:36)
[2018-12-19] MEDS ORDERED: HYDROcodone/Acetaminophen 5/325 mg Tablet PO PRN (08:55)
[2018-12-19] MEDS ORDERED: IRON PO SCH (09:00)
[2018-12-19] MEDS ORDERED: PRENATAL CALC PO SCH (09:00)
[2018-12-19] MEDS ORDERED: FOLATE PO SCH (09:00)
[2018-12-19] MEDS ORDERED: Adacel (T-DAP) 0.5 ML SYRINGE IM ONE (09:00)
[2018-12-19] MEDS: HYDROcodone/Acetaminophen 5/325 mg Tablet PO PRN ×4 (09:15→22:37)
[2018-12-20] MEDS: Ibuprofen 800 MG TAB PO SCH ×2 (05:04→14:44)
[2018-12-20] MEDS: HYDROcodone/Acetaminophen 5/325 mg Tablet PO PRN ×2 (05:05→09:03)
--- NOTE | 2018-12-20 08:37 | PDOC.OBPPN ---
FMR OB PN: Subj - Interval History Day: 2 Chief Complaint: s/p primary LTCS Interval History: ambulating, tolerating normal diet, urinating, passing gas, pain controlled FMR OB PN: Obj - Maternal Vital signs: Selected Entries 12/19/18 12/20/18 19:45 04:10 Temperature 98.0 F Pulse Rate 81 Blood Pressure 108/61 [Semi-Fowlers] Respiratory 18 Rate O2 Sat by Pulse 98 Oximetry Oxygen Delivery Room Air Method - Urine output I&O: 12/19/18 12/20/18 12/21/18 06:59 06:59 06:59 Intake Total 1617 870 Output Total 1340 500 Balance 277 370 FMR OB PN: Exam - Physical Exam General: NAD, awake, alert and oriented HEENT: normocephalic and atraumatic, PERRLA Breast: symmetric, non-tender Heart: RRR, normal S1/S2 General: CTAB, no respiratory distress, no wheezing Abdomen: soft, fundus(cm) (at umbilicus) Musculoskeletal: pulses present : incision healing well, no erythema, no edema, no drainage, appropriately tender Lymphatic: no unusual bruising or bleeding, no purpura FMR OB PN: Data - Labs Lab results: Laboratory Results - last 24 hr 12/19/18 12/19/18 12/19/18 11:03 17:27 21:11 POC Glucose 104 97 100 12/20/18 06:05 POC Glucose 80 FMR OB PN: A/P - Problem List (1) Term delivered Status: Acute Code(s): O80 - ENCOUNTER FOR FULL-TERM UNCOMPLICATED DELIVERY (2) S/P primary low transverse Status: Acute Code(s): Z98.891 - HISTORY OF UTERINE SCAR FROM PREVIOUS SURGERY (3) Diabetes type 2, controlled Status: Acute Code(s): E11.9 - TYPE 2 DIABETES MELLITUS WITHOUT COMPLICATIONS (4) Advanced maternal age (AMA) in Status: Acute Code(s): [id number] - (5) Anemia affecting Status: Acute Code(s): O99.019 - ANEMIA COMPLICATING , UNSPECIFIED TRIMESTER (6) Diabetes mellitus affecting Status: Acute Code(s): O24.919 - UNSP DIABETES MELLITUS IN , UNSPECIFIED TRIMESTER (7) History of pre-eclampsia Status: Acute Code(s): Z87.59 - PERSONAL HISTORY OF COMP OF PREG, CHLDBRTH AND THE PUERP (8) Hypothyroidism Status: Acute Code(s): E03.9 - HYPOTHYROIDISM, UNSPECIFIED (9) Rubella non-immune status, antepartum Status: Acute Code(s): O99.89 - OTH DISEASES AND CONDITIONS COMPL PREG/ CHLDBRTH; Z28.3 - UNDERIMMUNIZATION STATUS Discussion: Date/Time: 12/20/18 0830 43 yo @ 37wks by 29.6wk US admitted for IOL 2/2 oligohydramnios. S/p failed IOL 2/2 no cervical change, and s/p primary LTCS yesterday (12/18) at ~ 1000, post op day #2 #sIUP, delivered -s/p failed IOL, trial period of ~36 hours without any change, cat 1 strip throughout -now s/p primary LTCS, pt tolerated procedure well -carb control diet, pt ambulating, quinonez pulled yesterday and urinating adequately, pain controlled on ibuprofen 800mg q8h anayeli, norco for breakthrough pain. Hx of LEEP x2 -suspect that this was one of the main contributing factors to her failed induction Pregestational DM, class B - Dx 2014 - most recent A1C 6.3% - achs accuchecks - pt has taken metformin while not being , has only required insulin during - sugars have been well controlled without medication or insulin here but she usually takes 500mg metformin BID prior to - will recheck a hba1c at 4-6 weeks and will continue metformin 500mg BID upon discharge - recommend accuchecks twice a day at home - pt to follow-up in 1-2 weeks Hypothyroidism - TSH = 4.6 (10/2018) -> 1.98 (11/30/18) - continue levothyroxine 100mcg - tsh @ 4-6 weeks Anemia of -most recent H/H on 12/01/18: 11.4/33.1 -post delivery: H/H 9.5/27.9 AMA- -aware Rubella nonimmune - MMR PP Hx of PreE -vitals q4h Elevated BP without diagnosis of hypertension- -monitor vitals q4h, if elevated >140/90 would do a preE workup with urine prot/ cr, cbc, cmp DVT: scd's, encourage ambulation Dispo: ok for dc today, rosario removed today, pt needs follow-up 1-2 weeks at [facility] Sheeba Jordan MD, PGY-2 Addendum - Attending - Attending Attestation Date/Time: 12/20/18 1701 I personally evaluated the patient and discussed the management with Dr. Julian [facility] [place] I agree with the History, Examination, Assessment and Plan documented above with any addition or exceptions noted below. Pain controlled. Afeb. Incision C/D/I. Stable for d/c to [facility].
[2018-12-20] MEDS: Prenatal Vitamin 1 TAB PO SCH (09:00)
[2018-12-20] MEDS: Levothyroxine Sodium 100 MCG TAB PO SCH (09:00)
[2018-12-20 13:07] VITALS: BP 133/62; TEMP 97.7
== END 2018-12-20 15:45 | disposition home or self-care (01) | DRG 787 ==
LOC: L&D 22:39 → 3SW 12-18 14:26
PROVIDERS: ADMIT Family Medicine; ATTEND Family Medicine
PROC: 3E0P7VZ Introduction of Hormone into Female Reproductive, Via Natural or Artificial Opening (ICD-10-PCS; principal; 2018-12-18)
PROC: 10D00Z1 Extraction of Products of Conception, Low, Open Approach (ICD-10-PCS; 2018-12-18)
PROC: 3E033VJ Introduction of Other Hormone into Peripheral Vein, Percutaneous Approach (ICD-10-PCS; 2018-12-18)
DX: O99.284 Endocrine, nutritional and metabolic diseases complicating childbirth (principal); O41.03X0 Oligohydramnios, third trimester, not applicable or unspecified; Z3A.37 37 weeks gestation of pregnancy; Z37.0 Single live birth; O99.214 Obesity complicating childbirth; O99.324 Drug use complicating childbirth; O99.02 Anemia complicating childbirth; O24.12 Pre-existing type 2 diabetes mellitus, in childbirth; E66.9 Obesity, unspecified; E03.9 Hypothyroidism, unspecified; F19.90 Other psychoactive substance use, unspecified, uncomplicated; D64.9 Anemia, unspecified; E11.9 Type 2 diabetes mellitus without complications; O61.0 Failed medical induction of labor
CPT/HCPCS: 36415; 36416; 51702; 82947; 85027; 86780; 86850; 86900; 86901; 87340; C1726; J0456; J0595; J0690; J1885; J2270; J2405; J2590; Q0163

== ENCOUNTER 2020-04-25 20:53 | Emergency (ER) | payer MEDICAID, SELFPAY ==
[2020-04-25] MEDS ORDERED: HYDROcodone/Acetaminophen 10/325 mg Tablet ONE (21:33)
--- NOTE | 2020-04-25 21:59 | RAD ---
LEFT HAND RADIOGRAPHS THREE VIEWS: 04/25/20 PROVIDED CLINICAL HISTORY: Pain status post injury. FINDINGS: there is no evidence for fracture or other acute osseous abnormality. If there is persistent clinical concern, conservative management and follow-up imaging are advised. IMPRESSION: As above. POS: ROSSI
== END 2020-04-25 23:10 | disposition home or self-care (01) ==
LOC: ERS 20:53
DX: S63.502A Unspecified sprain of left wrist, initial encounter (principal); E11.9 Type 2 diabetes mellitus without complications; E03.9 Hypothyroidism, unspecified; Z79.84 Long term (current) use of oral hypoglycemic drugs; Z79.899 Other long term (current) drug therapy; W18.30XA Fall on same level, unspecified, initial encounter

== ENCOUNTER 2021-07-26 21:49 | Emergency (ER) | payer SELFPAY ==
[2021-07-26 22:20] LABS: #Basophils 0.1 thou/uL (0.0-0.2); #Eosinphils 0.1 thou/uL (0.0-0.7); #Lymphocytes 2.4 thou/uL (1.20-3.40); #Monocytes 0.8 thou/uL (0.11-0.59); #Neutrophils 6.2 thou/uL (1.40-6.50); %Basophils 0.7 % (0.0-1.0); %Lymphocytes 25.1 % (21.0-51.0); %Neutrophils 65.3 % (42.0-75.0); Hemoglobin 14.4 g/dL (12.0-16.0); Mean Corpuscular HGB CONC 34.5 g/dL (32.0-36.0); Mean Corpuscular Hemoglobin 31.2 pg (27.0-31.0); Mean Corpuscular Volume 90.5 fL (78.0-98.0); Mean Platelet Volume 6.7 fL (7.4-10.4); Platelet Count 307 thou/uL (130-400); RBC Distribution Width 11.2 % (11.5-14.5); Red Blood Cell (RBC) Count 4.62 mill/uL (4.20-5.40); White Blood Cell (WBC) Count 9.5 thou/uL (4.8-10.8)
[2021-07-26 22:50] LABS: ALT (SGPT) 39 U/L (8-55); AST (SGOT) 67 U/L (5-34); Albumin 4.4 g/dL (3.5-5.0); Alkaline Phosphatase 96 U/L (40-110); Anion Gap 18 mmol/L (10-20); BUN (Urea Nitrogen) 12 mg/dL (7.0-18.7); Bilirubin, Total 0.2 mg/dL (0.2-1.2); CK (CPK) 164 U/L (29-168); Calc. Creatinine Clearance 0 mL/min (70-130); Calcium 10.5 mg/dL (7.8-10.44); Carbon Dioxide 22 mmol/L (22-29); Chloride 101 mmol/L (98-107); Globulin 4.4 g/dL (2.4-3.5); Glucose 134 mg/dL (70-105); Lipase 53 U/L (8-78); Potassium 4.5 mmol/L (3.5-5.1); Protein, Total 8.8 g/dL (6.0-8.3); Sodium 136 mmol/L (136-145)
[2021-07-27 17:13] LABS: SARS-CoV-2 PCR by NAA Not Detected (NotDetected)
== END 2021-07-27 00:41 | disposition home or self-care (01) ==
LOC: ERS 21:49
DX: R07.9 Chest pain, unspecified (principal); B34.9 Viral infection, unspecified; Z20.822 Contact with and (suspected) exposure to COVID-19; E11.9 Type 2 diabetes mellitus without complications; E03.9 Hypothyroidism, unspecified; Z79.84 Long term (current) use of oral hypoglycemic drugs
CPT/HCPCS: 71045; 80053; 82550; 83690; 84484; 85025; 87804; 93005; U0003; U0005

== ENCOUNTER 2021-08-11 19:43 | Emergency (ER) | payer SELFPAY ==
[2021-08-11 21:10] LABS: #Eosinphils 0.1 thou/uL (0.0-0.7); #Lymphocytes 1.8 thou/uL (1.20-3.40); #Monocytes 0.6 thou/uL (0.11-0.59); #Neutrophils 5.5 thou/uL (1.40-6.50); %Basophils 0.2 % (0.0-1.0); %Eosinophils 1.6 % (0.0-10.0); %Lymphocytes 22.9 % (21.0-51.0); %Monocytes 7.2 % (0.0-10.0); %Neutrophils 68.2 % (42.0-75.0); Hemoglobin 13.6 g/dL (12.0-16.0); Mean Corpuscular HGB CONC 35.5 g/dL (32.0-36.0); Mean Corpuscular Hemoglobin 32.2 pg (27.0-31.0); Mean Corpuscular Volume 90.7 fL (78.0-98.0); Mean Platelet Volume 6.3 fL (7.4-10.4); Platelet Count 331 thou/uL (130-400); RBC Distribution Width 11.5 % (11.5-14.5); Red Blood Cell (RBC) Count 4.23 mill/uL (4.20-5.40)
[2021-08-11 21:32] LABS: Albumin 3.8 g/dL (3.5-5.0); Anion Gap 13 mmol/L (10-20); BUN (Urea Nitrogen) 14 mg/dL (7.0-18.7); Bilirubin, Total 0.5 mg/dL (0.2-1.2); Calc. Creatinine Clearance 0 mL/min (70-130); Calcium 9.7 mg/dL (7.8-10.44); Carbon Dioxide 24 mmol/L (22-29); Chloride 107 mmol/L (98-107); Glucose 155 mg/dL (70-105); Potassium 3.6 mmol/L (3.5-5.1); Protein, Total 7.2 g/dL (6.0-8.3); Sodium 140 mmol/L (136-145)
[2021-08-11 21:33] LABS: ALT (SGPT) 107 U/L (8-55); AST (SGOT) 183 U/L (5-34); Alkaline Phosphatase 122 U/L (40-110); Globulin 3.4 g/dL (2.4-3.5)
[2021-08-11] MEDS ORDERED: Acetaminophen 500 MG TAB ONE (22:21)
[2021-08-11] MEDS ORDERED: Dexamethasone 10 MG/ML VIAL ONE (22:22)
[2021-08-12 16:59] LABS: SARS-CoV-2 PCR by NAA DETECTED (NotDetected)
== END 2021-08-11 23:14 | disposition home or self-care (01) ==
LOC: ERS 19:43
DX: U07.1 COVID-19 (principal); I10 Essential (primary) hypertension; E11.9 Type 2 diabetes mellitus without complications; E03.9 Hypothyroidism, unspecified; Z79.84 Long term (current) use of oral hypoglycemic drugs
CPT/HCPCS: 36415; 71045; 80053; 83880; 84484; 85025; 93005; J1100; U0003; U0005

== ENCOUNTER 2022-01-03 14:06 | Emergency (ER) | payer SELFPAY ==
[2022-01-03 14:54] LABS: #Lymphocytes 1.4 thou/uL (1.20-3.40); #Monocytes 0.5 thou/uL (0.11-0.59); #Neutrophils 8.6 thou/uL (1.40-6.50); %Basophils 0.2 % (0.0-1.0); %Eosinophils 0.3 % (0.0-10.0); %Lymphocytes 13.1 % (21.0-51.0); %Monocytes 5.1 % (0.0-10.0); %Neutrophils 81.3 % (42.0-75.0); Hemoglobin 13.3 g/dL (12.0-16.0); Mean Corpuscular HGB CONC 32.1 g/dL (32.0-36.0); Mean Corpuscular Hemoglobin 30.8 pg (27.0-31.0); Mean Corpuscular Volume 95.9 fL (78.0-98.0); Platelet Count 272 thou/uL (130-400); Red Blood Cell (RBC) Count 4.33 mill/uL (4.20-5.40); White Blood Cell (WBC) Count 10.6 thou/uL (4.8-10.8)
[2022-01-03 15:19] LABS: ALT (SGPT) 145 U/L (8-55); AST (SGOT) 35 U/L (5-34); Albumin 4.2 g/dL (3.5-5.0); Alkaline Phosphatase 80 U/L (40-110); Anion Gap 16 mmol/L (10-20); BUN (Urea Nitrogen) 19 mg/dL (7.0-18.7); Bilirubin, Total 1.2 mg/dL (0.2-1.2); Calc. Creatinine Clearance 0 mL/min (70-130); Carbon Dioxide 19 mmol/L (22-29); Chloride 109 mmol/L (98-107); Glucose 192 mg/dL (70-105); Potassium 3.9 mmol/L (3.5-5.1); Protein, Total 7.2 g/dL (6.0-8.3); Sodium 140 mmol/L (136-145)
[2022-01-03 15:39] LABS: Hemoglobin A1c 6.6 % (4.0-6.0)
== END 2022-01-03 17:52 | disposition home or self-care (01) ==
LOC: ERS 14:06
DX: F41.0 Panic disorder [episodic paroxysmal anxiety] (principal); I10 Essential (primary) hypertension; E11.9 Type 2 diabetes mellitus without complications; E03.9 Hypothyroidism, unspecified; J45.909 Unspecified asthma, uncomplicated; Z79.899 Other long term (current) drug therapy; Z79.84 Long term (current) use of oral hypoglycemic drugs
CPT/HCPCS: 36415; 36416; 71045; 80053; 83036; 83880; 84443; 84484; 85025; 93005

== ENCOUNTER 2022-08-01 13:21 | Inpatient (IN) | payer SELFPAY ==
[2022-08-01 14:15] LABS: #Eosinphils 0.1 thou/uL (0.0-0.7); #Lymphocytes 1.7 thou/uL (1.20-3.40); #Monocytes 0.6 thou/uL (0.11-0.59); #Neutrophils 6.4 thou/uL (1.40-6.50); %Basophils 0.3 % (0.0-1.0); %Eosinophils 0.6 % (0.0-10.0); %Lymphocytes 19.7 % (21.0-51.0); %Monocytes 6.7 % (0.0-10.0); %Neutrophils 72.6 % (42.0-75.0); Hemoglobin 12.8 g/dL (12.0-16.0); Mean Corpuscular HGB CONC 33.3 g/dL (32.0-36.0); Mean Corpuscular Hemoglobin 31.1 pg (27.0-31.0); Mean Corpuscular Volume 93.2 fl (78.0-98.0); Platelet Count 303 10x3/uL (130-400); RBC Distribution Width 11.6 % (11.5-14.5); Red Blood Cell (RBC) Count 4.11 mill/uL (4.20-5.40); White Blood Cell (WBC) Count 8.8 10x3/uL (4.8-10.8)
[2022-08-01 14:27] LABS: BHCG - Serum Negative (NEGATIVE); Pregs Control Background? CLEAR/WHITE (CLR/WHITE); Pregs Control Bar Appear? YES (CONTROL BAR)
[2022-08-01] MEDS ORDERED: Dexamethasone 4 mg/ml Vial ONE (14:35)
[2022-08-01 14:40] LABS: ALT (SGPT) 26 U/L (8-55); AST (SGOT) 48 U/L (5-34); Albumin 3.8 g/dL (3.5-5.0); Alkaline Phosphatase 59 U/L (40-110); Anion Gap 14 mmol/L (10-20); BUN (Urea Nitrogen) 14 mg/dL (7.0-18.7); Bilirubin, Total 0.7 mg/dL (0.2-1.2); CK (CPK) 82 U/L (29-168); Calc. Creatinine Clearance 0 mL/min (70-130); Carbon Dioxide 20 mmol/L (22-29); Chloride 105 mmol/L (98-107); Estimated GFR 101; Globulin 2.8 g/dL (2.4-3.5); Glucose 146 mg/dL (70-105); Lipase 34 U/L (8-78); Potassium 3.8 mmol/L (3.5-5.1); Protein, Total 6.6 g/dL (6.0-8.3); Sodium 135 mmol/L (136-145)
[2022-08-01 15:20] LABS: SARS-CoV-2 NAA Rapid Test Not Detected (NotDetected)
[2022-08-01] MEDS ORDERED: Aspirin Chewable 81 MG TAB ONE (16:32)
[2022-08-01] MEDS ORDERED: Dextrose 50% Abboject 50 ML SYRINGE SLOW IVP PRN (17:34)
[2022-08-01] MEDS ORDERED: HumaLOG 300 UNITS/3 ML VIAL SC PRN (17:34)
[2022-08-01] MEDS ORDERED: Dextrose 5% in Water 1,000 ML IV PRN (17:34)
[2022-08-01 20:18] LABS: Troponin I Less than 0.010 ng/mL (< 0.028)
[2022-08-01 20:27] VITALS: BMI 35.8
[2022-08-01 23:30] LABS: Troponin I Less than 0.010 ng/mL (< 0.028)
[2022-08-02 05:44] LABS: Anion Gap 13 mmol/L (10-20); BUN (Urea Nitrogen) 10 mg/dL (7.0-18.7); Calc. Creatinine Clearance 142 mL/min (70-130); Calcium 9.3 mg/dL (7.8-10.44); Carbon Dioxide 17 mmol/L (22-29); Chloride 109 mmol/L (98-107); Estimated GFR 109; Glucose 185 mg/dL (70-105); Potassium 4.3 mmol/L (3.5-5.1); Sodium 135 mmol/L (136-145)
[2022-08-02] MEDS ORDERED: Cosyntropin 250 MCG VIAL SLOW IVP SCH (07:45)
[2022-08-02 08:32] LABS: Magnesium 1.9 mg/dL (1.6-2.6); Phosphorus 2.6 mg/dL (2.3-4.7)
[2022-08-02] MEDS ORDERED: Enoxaparin Sodium 40 MG/0.4 ML SYRINGE SC SCH (09:00)
[2022-08-02] MEDS ORDERED: Electrolyte Replacement Protocol 1 EACH FS SCH (09:30)
[2022-08-02] MEDS ORDERED: Regadenoson 0.4 MG/5 ML SYRINGE ONE (09:55)
[2022-08-02] MEDS ORDERED: Magnesium 2 GM/50 ML(in water) 2 GM in Premix Bag 1 BAG IVPB SCH (11:00)
[2022-08-02 16:43] VITALS: BP 128/64; TEMP 98
== END 2022-08-02 18:18 | disposition home or self-care (01) | DRG 312 ==
LOC: ERS 13:21 → ERHOLD 15:58 → 2SW 19:55
PROVIDERS: ADMIT Internal Medicine; ATTEND Internal Medicine
DX: I95.2 Hypotension due to drugs (principal); E87.1 Hypo-osmolality and hyponatremia; E86.0 Dehydration; Z20.822 Contact with and (suspected) exposure to COVID-19; E83.42 Hypomagnesemia; T46.5X5A Adverse effect of other antihypertensive drugs, initial encounter; I08.1 Rheumatic disorders of both mitral and tricuspid valves; J45.909 Unspecified asthma, uncomplicated; E03.9 Hypothyroidism, unspecified; R00.1 Bradycardia, unspecified; Z79.899 Other long term (current) drug therapy; Z79.890 Hormone replacement therapy; Z79.82 Long term (current) use of aspirin; Z90.711 Acquired absence of uterus with remaining cervical stump
CPT/HCPCS: 36415; 36416; 71045; 78452; 80048; 80053; 80400; 82533; 82550; 83605; 83690; 83735; 83880; 84100; 84443; 84484; 84703; 85025; 85379; 87040; 93005; 93017; 93306; 96361; 96374; A9500; J0834; J1100; J3475

== ENCOUNTER 2022-08-10 16:55 | Emergency (ER) | payer SELFPAY ==
[2022-08-10 18:36] LABS: #Lymphocytes 0.8 thou/uL (1.20-3.40); #Monocytes 0.6 thou/uL (0.11-0.59); #Neutrophils 7.4 thou/uL (1.40-6.50); %Basophils 0.2 % (0.0-1.0); %Eosinophils 0.5 % (0.0-10.0); %Monocytes 6.8 % (0.0-10.0); %Neutrophils 83.5 % (42.0-75.0); Hemoglobin 12.7 g/dL (12.0-16.0); Mean Corpuscular Hemoglobin 31.5 pg (27.0-31.0); Mean Corpuscular Volume 92.5 fl (78.0-98.0); Mean Platelet Volume 7.1 fL (7.4-10.4); Platelet Count 266 10x3/uL (130-400); RBC Distribution Width 11.6 % (11.5-14.5); Red Blood Cell (RBC) Count 4.03 mill/uL (4.20-5.40); White Blood Cell (WBC) Count 8.9 10x3/uL (4.8-10.8)
[2022-08-10] MEDS ORDERED: Aspirin Chewable 81 MG TAB ONE (18:37)
[2022-08-10 18:53] LABS: ALT (SGPT) 284 U/L (8-55); AST (SGOT) 384 U/L (5-34); Albumin 4.2 g/dL (3.5-5.0); Alkaline Phosphatase 104 U/L (40-110); Anion Gap 14 mmol/L (10-20); BUN (Urea Nitrogen) 10 mg/dL (7.0-18.7); Bilirubin, Total 1.3 mg/dL (0.2-1.2); Calc. Creatinine Clearance 0 mL/min (70-130); Calcium 9.2 mg/dL (7.8-10.44); Carbon Dioxide 22 mmol/L (22-29); Chloride 108 mmol/L (98-107); Estimated GFR 103; Globulin 2.7 g/dL (2.4-3.5); Glucose 205 mg/dL (70-105); Potassium 3.9 mmol/L (3.5-5.1); Protein, Total 6.9 g/dL (6.0-8.3); Sodium 140 mmol/L (136-145)
[2022-08-10 20:55] LABS: Bilirubin Negative (Negative); Blood, Urine Negative (Negative); Clarity Turbid (Clear); Glucose, Urine (Dipstick) Greater than 1000 mg/dL (Negative); Ketone, Urine Negative (Negative); Leukocyte Negative Leu/uL (Negative); Nitrite Negative (Negative); Pregnancy Test - Urine (BHCG) Negative (Negative); Pregu Control Background? CLEAR/WHITE (CLR/WHITE); Pregu Control Bar Appear? YES (CONTROL BAR); Protein, Urine (Dipstick) Negative (Neg-Trace); Specific Gravity 1.019 (1.002-1.036); Specific Gravity, Urine 1.019 (1.002-1.036); Urobilinogen 3 mg/dL (Less than 2)
== END 2022-08-10 22:01 | disposition home or self-care (01) ==
LOC: ERS 16:55
DX: R07.9 Chest pain, unspecified (principal); I10 Essential (primary) hypertension; E11.9 Type 2 diabetes mellitus without complications; E03.9 Hypothyroidism, unspecified; Z79.84 Long term (current) use of oral hypoglycemic drugs; Z79.899 Other long term (current) drug therapy
CPT/HCPCS: 36415; 71045; 80053; 81003; 81025; 84484; 85025; 93005

== ENCOUNTER 2023-07-26 10:48 | Inpatient (IN) | payer SELFPAY ==
[2023-07-26] MEDS ORDERED: Albuterol 2.5 MG/0.5 ML NEB ONE (11:50)
[2023-07-26] MEDS ORDERED: Dexamethasone 10 MG/ML VIAL ONE (11:51)
[2023-07-26] MEDS ORDERED: Ipratropium/Albuterol 3 ML NEB ONE (11:51)
[2023-07-26 12:11] LABS: #Monocytes 0.6 thou/uL (0.11-0.59); %Basophils 0.5 % (0.0-1.0); %Eosinophils 0.3 % (0.0-10.0); %Lymphocytes 15.7 % (21.0-51.0); %Monocytes 7.4 % (0.0-10.0); %Neutrophils 75.7 % (42.0-75.0); Hematocrit 43.4 % (36.0-47.0); Hemoglobin 14.2 g/dL (12.0-16.0); Mean Corpuscular HGB CONC 32.7 g/dL (32.0-36.0); Mean Corpuscular Hemoglobin 30.3 pg (27.0-31.0); Mean Corpuscular Volume 92.7 fl (78.0-98.0); Mean Platelet Volume 10.7 fL (7.4-10.4); Platelet Count 179 10x3/uL (130-400); RBC Distribution Width 12.7 % (11.5-14.5); Red Blood Cell (RBC) Count 4.68 mill/uL (4.20-5.40); White Blood Cell (WBC) Count 7.9 10x3/uL (4.8-10.8)
[2023-07-26] MEDS ORDERED: Magnesium 2 GM/50 ML BAG (IN WATER) ONE (12:11)
[2023-07-26 12:42] LABS: ALT (SGPT) 26 U/L (8-55); AST (SGOT) 25 U/L (5-34); Albumin 3.9 g/dL (3.5-5.0); Alkaline Phosphatase 89 U/L (40-110); Anion Gap 16 mmol/L (10-20); BUN (Urea Nitrogen) 8 mg/dL (7.0-18.7); Bilirubin, Total 0.6 mg/dL (0.2-1.2); Calc. Creatinine Clearance 0 mL/min (70-130); Calcium 9.4 mg/dL (7.8-10.44); Carbon Dioxide 16 mmol/L (22-29); Chloride 106 mmol/L (98-107); Estimated GFR 91; Globulin 3.6 g/dL (2.4-3.5); Glucose 283 mg/dL (70-105); Lipase 35 U/L (8-78); Potassium 3.9 mmol/L (3.5-5.1); Protein, Total 7.5 g/dL (6.0-8.3); Sodium 134 mmol/L (136-145); Troponin I Less than 0.010 ng/mL (< 0.028)
[2023-07-26 13:18] LABS: SARS-CoV-2 NAA Rapid Test Not Detected (NotDetected)
[2023-07-26] MEDS ORDERED: Dextrose 5% in Water 1,000 ML IV PRN (14:12)
[2023-07-26] MEDS ORDERED: Acetaminophen 325 MG TAB PO PRN (14:12)
[2023-07-26] MEDS ORDERED: Dextrose 50% Abboject 50 ML SYRINGE SLOW IVP PRN (14:12)
[2023-07-26] MEDS ORDERED: Ondansetron PF 4 MG/2 ML Vial IVP PRN (14:12)
[2023-07-26] MEDS ORDERED: Glucagon 1 MG/ML KIT IM PRN (14:12)
[2023-07-26] MEDS ORDERED: HumaLOG 300 UNITS/3 ML VIAL SC PRN ×2 (14:12)
[2023-07-26] MEDS: Ipratropium/Albuterol 3 ML NEB NEB SCH ×3 (14:30→22:13)
[2023-07-26 17:05] LABS: Troponin I Less than 0.010 ng/mL (< 0.028)
[2023-07-26 18:01] VITALS: BMI 34.1
[2023-07-26] MEDS: methylPREDNISolone Sod Succ 40 MG VIAL IVP SCH ×2 (18:33→23:32)
[2023-07-26] MEDS: Oseltamivir 75 MG CAP PO SCH (19:57)
[2023-07-26] MEDS: metFORMIN 500 MG TAB PO SCH (19:57)
[2023-07-26] MEDS ORDERED: Atorvastatin Calcium 20 MG TAB PO SCH (21:00)
[2023-07-26 22:08] LABS: Troponin I Less than 0.010 ng/mL (< 0.028)
[2023-07-27] MEDS: Ipratropium/Albuterol 3 ML NEB NEB SCH ×3 (02:33→11:40)
[2023-07-27] MEDS ORDERED: Levothyroxine Sodium 75 MCG TAB PO SCH (06:00)
[2023-07-27] MEDS: methylPREDNISolone Sod Succ 40 MG VIAL IVP SCH (06:07)
[2023-07-27 06:45] LABS: #Monocytes 0.2 thou/uL (0.11-0.59); #Neutrophils 10.8 thou/uL (1.40-6.50); %Basophils 0.2 % (0.0-1.0); %Lymphocytes 7.2 % (21.0-51.0); %Monocytes 1.8 % (0.0-10.0); %Neutrophils 90.2 % (42.0-75.0); Hematocrit 36.9 % (36.0-47.0); Hemoglobin 12.6 g/dL (12.0-16.0); Mean Corpuscular HGB CONC 34.1 g/dL (32.0-36.0); Mean Corpuscular Hemoglobin 29.9 pg (27.0-31.0); Mean Platelet Volume 9.2 fL (7.4-10.4); RBC Distribution Width 12.5 % (11.5-14.5); Red Blood Cell (RBC) Count 4.22 mill/uL (4.20-5.40); White Blood Cell (WBC) Count 11.9 10x3/uL (4.8-10.8)
[2023-07-27 06:46] LABS: Mean Corpuscular Volume 87.4 fl (78.0-98.0)
[2023-07-27 06:47] LABS: Platelet Count 293 10x3/uL (130-400)
[2023-07-27 07:08] LABS: Anion Gap 16 mmol/L (10-20); BUN (Urea Nitrogen) 7 mg/dL (7.0-18.7); Calc. Creatinine Clearance 120 mL/min (70-130); Calcium 9.3 mg/dL (7.8-10.44); Carbon Dioxide 14 mmol/L (22-29); Chloride 109 mmol/L (98-107); Estimated GFR 99; Glucose 274 mg/dL (70-105); Potassium 4.2 mmol/L (3.5-5.1); Sodium 135 mmol/L (136-145)
[2023-07-27] MEDS ORDERED: Insulin Glargine 30 UNITS/0.3 ML VIAL SC SCH (08:45)
[2023-07-27] MEDS ORDERED: methylPREDNISolone Sod Succ 40 MG VIAL IVP SCH (09:00)
[2023-07-27] MEDS ORDERED: dilTIAZem CD 120 MG CAP PO SCH (09:00)
[2023-07-27 09:05] VITALS: BP 133/71; TEMP 98.1
[2023-07-27] MEDS: Oseltamivir 75 MG CAP PO SCH (09:21)
[2023-07-27] MEDS: metFORMIN 500 MG TAB PO SCH (09:21)
== END 2023-07-27 12:22 | disposition home or self-care (01) | DRG 202 ==
LOC: ERS 10:48 → 2SW 14:30 → OBSVTOIN 14:30
PROVIDERS: ADMIT Internal Medicine; ATTEND Internal Medicine
DX: J45.901 Unspecified asthma with (acute) exacerbation (principal); I48.92 Unspecified atrial flutter; J09.X2 Influenza due to identified novel influenza A virus with other respiratory manifestations; E11.9 Type 2 diabetes mellitus without complications; E03.9 Hypothyroidism, unspecified; I10 Essential (primary) hypertension; Z98.890 Other specified postprocedural states; Z88.8 Allergy status to other drugs, medicaments and biological substances; Z79.84 Long term (current) use of oral hypoglycemic drugs; Z79.51 Long term (current) use of inhaled steroids; Z79.899 Other long term (current) drug therapy; Z11.52 Encounter for screening for COVID-19
CPT/HCPCS: 36415; 36416; 71045; 80048; 80053; 83690; 83880; 84443; 84484; 85025; 85379; 93005; 93306; 94640; 96374; 96375; J1100; J1650; J1815; J2920; J3475; J7611; J7620